=== PATIENT | female | born 1995 | race Caucasian/White ===

== ENCOUNTER 2016-08-21 19:40 | Observation (INO) | payer BC, MEDICAID ==
[2016-08-23] MEDS ORDERED: FERROUS SULFAT325 MG PO (16:37)
[2016-08-23] MEDS ORDERED: PRENATAL VIT1 TAB PO (16:37)
[2016-08-23] MEDS ORDERED: ZOFRAN4 MG PO (16:38)
[2016-08-23] MEDS ORDERED: OMNICEF DPS300 MG PO (16:38)
[2016-08-23] MEDS ORDERED: TYLENOL EXTRA500 M1 PO (16:38)
--- NOTE | 2016-08-24 10:57 | HP ---
ADMIT: 08/21/2016 RM/LOC: [facility] MR#: [id number] [address] [facility] [address] [place] [id number] REHANA FRANCIS [address] [place] [address] History and Physical SEX: F AGE: 20 : 1995 DATE OF SERVICE: 08/21/2016 CHIEF COMPLAINT: Left flank pain, nausea, and vomiting. HISTORY OF PRESENT ILLNESS: The patient is a 20-year-old, 3, para 2-0- 0-2 female, who presents at 29 weeks' gestation with left flank pain, fever overnight, and persistent nausea and vomiting. She said her symptoms began on August 20 with a lot of low back pain and lower pelvic cramping. It radiated up into her left side and down into her left leg. She started having some nausea and vomiting. No diarrhea. By evening, she was starting to get a fever and did end up spiking up to 102. She took some Tylenol and it did come down and it has been better through the day, but she was seen earlier in the day in the office and had a UA that looks infected, so she was given 1 g of Rocephin and Zofran and despite that has continued to feel ill through the day and cannot keep any fluids down, so was admitted for fluids and further management this evening. PAST MEDICAL HISTORY: The patient has had 2 prior sections. She has no other chronic issues. Just failed her 3-hour glucose for this and has some mild anemia. MEDICATIONS: 1. vitamin daily. 2. Ferrous sulfate 325 mg daily. 3. Cefdinir 300 mg b.i.d. she was started on this morning. 4. Zofran 4 mg q.6 hours p.r.n.. 5. Some Tylenol as needed for fevers. ALLERGIES: NO KNOWN DRUG ALLERGIES. FAMILY HISTORY: First-degree relatives are all in good health. SOCIAL HISTORY: The patient is to the father of her first 2 children. She does daycare. Denies any tobacco, alcohol, or drug use. PHYSICAL EXAM: VITAL SIGNS: Temp on admission is normal at 98.2, blood pressure 108/56, pulse 82, respirations 18. HEART: Regular without murmurs. LUNGS: Sound clear. ABDOMEN: Gravid. She is mildly tender down in the left pelvic area on left side and then has positive CVA tenderness on the left. No CVA tenderness on the right. EXTREMITIES: Have no edema and she has no rashes. heart tones around 145 with good variability, and she has no contractions noted on the monitor. ASSESSMENT: ADMIT: 08/21/2016 RM/LOC: [address] [facility] MR#: [id number] [address] [id number] REHANA FRANCIS [address] [place] [address] History and Physical SEX: F AGE: 20 : 1995 1. Left pyelonephritis. 2. Urinary tract infection. 3. Fever. 4. Nausea and vomiting. 5. Dehydration. 6. A 29-week intrauterine . 7. Mild iron deficiency anemia. PLAN: We will admit for IV fluids, pain control, nausea, and I will keep her on Rocephin. We will get a cath specimen as her urine had too many EPIs to culture this morning. We will make any changes as needed based on her clinical response. Lala Batista MD/ roxanne JOB #: [id number] CC: Lala Batista, Attending Physician Lala Batista, Family Physician
[2016-11-03] MEDS ORDERED: MOTRIN-DPS800 MG PO (09:40)
[2016-11-03] MEDS ORDERED: COLACE-DPS100 MG PO (09:40)
[2016-11-03] MEDS ORDERED: PERCOCET 5 DPS1 TAB PO (09:41)
[2016-11-03] MEDS ORDERED: NIPPLECREAM TP (09:41)
== END 2016-08-22 09:24 | disposition home or self-care (01) ==
LOC: 2LDRP 19:40 → BC 19:40 → 2LDRP 19:45
PROVIDERS: ADMIT Family Medicine
DX: O23.03 Infections of kidney in pregnancy, third trimester (principal); O21.2 Late vomiting of pregnancy; E86.0 Dehydration; D50.9 Iron deficiency anemia, unspecified; R50.9 Fever, unspecified; Z3A.29 29 weeks gestation of pregnancy; Z79.899 Other long term (current) drug therapy

== ENCOUNTER → 2016-08-28 | Outpatient (CLI) | payer BC, MEDICAID ==
[~2016-08-28] MED LIST: COLACE-DPS100 MG PO; FERROUS SULFAT325 MG PO; MOTRIN-DPS800 MG PO; NIPPLECREAM TP; OMNICEF DPS300 MG PO; PERCOCET 5 DPS1 TAB PO; PRENATAL VIT1 TAB PO; TYLENOL EXTRA500 M1 PO; ZOFRAN4 MG PO
== END | disposition home or self-care (01) ==
LOC: RAD.S 14:00
DX: O99.89 Other specified diseases and conditions complicating pregnancy, childbirth and the puerperium (principal); R10.9 Unspecified abdominal pain; Z3A.29 29 weeks gestation of pregnancy

== ENCOUNTER 2016-10-04 07:15 | Outpatient (CLI) | payer BC, MEDICAID ==
[~2016-10-04 07:15] MED LIST changes: -COLACE-DPS100 MG PO; -MOTRIN-DPS800 MG PO; -NIPPLECREAM TP; -PERCOCET 5 DPS1 TAB PO
[2016-11-03] MEDS ORDERED: MOTRIN-DPS800 MG PO (09:40)
[2016-11-03] MEDS ORDERED: COLACE-DPS100 MG PO (09:40)
[2016-11-03] MEDS ORDERED: PERCOCET 5 DPS1 TAB PO (09:41)
[2016-11-03] MEDS ORDERED: NIPPLECREAM TP (09:41)
== END 2016-10-04 08:05 | disposition home or self-care (01) ==
LOC: BC 07:15 → 2LDRP 07:15 → BC 08:05
DX: O99.89 Other specified diseases and conditions complicating pregnancy, childbirth and the puerperium (principal); R51 Headache; Z3A.35 35 weeks gestation of pregnancy